=== PATIENT | female | born 1950 | race Caucasian/White ===

== ENCOUNTER 2017-03-07 16:47 | Emergency (ER) | payer BC ==
[2017-03-07 17:32] VITALS: RESP 16
[2017-03-07] MEDS ORDERED: ONDANSETRON 4 MG ODT BU ONE (17:40)
[2017-03-07] MEDS ORDERED: ONDANSETRON 4 MG ODT ONE ×2 (17:45→18:19)
[2017-03-07] MEDS ORDERED: ONDANSETRON 4 MG ODT BU PRN (18:16)
[2017-03-07 19:15] VITALS: BP 144/73; PULSE 73; TEMP 97; O2SAT 95
== END 2017-03-07 18:25 | disposition home or self-care (01) ==
LOC: ED 16:47
DX: J11.1 Influenza due to unidentified influenza virus with other respiratory manifestations (principal)
CPT/HCPCS: 87804; 99282; 99283

== ENCOUNTER 2018-02-04 10:58 | Emergency (ER) | payer OTHER, BC, MEDICARE ==
[2018-02-04] MEDS ORDERED: ACETAMINOPHEN 500 MG 500 MG TAB PO ONE (11:34)
[2018-02-04] MEDS ORDERED: TRAMADOL HYDROCHLORIDE 50 MG TAB PO ONE (11:34)
[2018-02-04 11:46] VITALS: TEMP 97.9
[2018-02-04] MEDS ORDERED: ACETAMINOPHEN 500 MG 500 MG TAB ONE (11:47)
[2018-02-04 12:09] VITALS: RESP 20
[2018-02-04] MEDS ORDERED: TDAP VACCINE 0.5 ML SUS IM ONE ×2 (12:22→12:24)
[2018-02-04 13:16] VITALS: BP 159/92; PULSE 81; O2SAT 93
== END 2018-02-04 12:50 | disposition home or self-care (01) | DRG 914 ==
LOC: ED 10:58
DX: S09.90XA Unspecified injury of head, initial encounter (principal); W19.XXXA Unspecified fall, initial encounter; Y93.9 Activity, unspecified; Y92.9 Unspecified place or not applicable; Y99.9 Unspecified external cause status
CPT/HCPCS: 70450; 90471; 90715; 99283; 99284

== ENCOUNTER 2018-02-12 13:39 | Emergency (ER) | payer OTHER, BC, MEDICARE ==
[2018-02-12 14:07] VITALS: BP 137/90; PULSE 91; RESP 20; TEMP 98.1; O2SAT 97
[2018-02-12] MEDS ORDERED: GABAPENTIN 300 MG CAP PO SCH (20:15)
== END 2018-02-12 17:44 | disposition home or self-care (01) | DRG 950 ==
LOC: ED 13:39
DX: S09.90XD Unspecified injury of head, subsequent encounter (principal); F07.81 Postconcussional syndrome
CPT/HCPCS: 70450; 99283; 99284